=== PATIENT | female | born 1970 | race African-American/Black ===

== ENCOUNTER 2021-03-29 05:37 | Emergency (ER) | payer OTHER ==
[~2021-03-29] VITALS: Ht 149.9 cm; Wt 59.0 kg
[~2021-03-29 05:37] MED LIST: HYDROCHLOROTHIA25 M1 PO; MIRALAX255 GM PO; NOHOMEMEDICATIONS; PHENERGAN 25 MG25 M1 PO; ULTRAM 50MG TAB50 MG PO
[2021-03-29] MEDS ORDERED: HYDROCHLOROTHIA25 M1 PO (06:28)
[2021-03-29] MEDS ORDERED: NORVASC5 MG PO (06:28)
[2021-03-29] MEDS ORDERED: LOSARTAN POTASS50 MG PO (06:28)
[2021-03-29 07:01] LABS: ABSOLUTE NEUTROPHILS 3.4 thou/uL (1.4-8.2); BASOPHILS 0.6 % (0.0-2.0); EOSINOPHILS 0.8 % (0.0-3.0); HEMATOCRIT 42.8 % (37.0-47.0); HEMOGLOBIN 13.7 gm/dL (12.0-15.0); LYMPHOCYTES 32.2 % (24.0-44.0); MCH 25.6 pg (26.0-34.0); MCHC 31.9 g/dL (28.0-37.0); MONOCYTES 6.6 % (1.0-8.0); PLATELET COUNT 258 thou/uL (150-400); POLYS 59.8 % (36.0-66.0); RBC 5.35 mil/uL (4.20-5.00); RDW 14.1 % (10.5-14.5); WBC 5.7 thou/uL (4.0-11.0)
[2021-03-29 07:13] LABS: CALCIUM 9.2 mg/dL (8.5-10.1); CREATININE 0.9 mg/dL (0.6-1.0); MAGNESIUM 2.2 mg/dL (1.8-2.4)
--- NOTE | 2021-03-29 07:18 | EKG ---
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 : 1970 Requested By: Nona Horner Order Number: [id number] MD: Vikas Yancey Measurements Intervals [place] Rate: 77 P: 26 GA: 126 QRS: -43 QRSD: 95 T: 15 QT: 378 QTc: 428 Interpretive Statements Sinus rhythmjavascript:perform('study_confirm'); Left anterior fascicular block Left ventricular hypertrophy Compared to ECG 09/21/2011 19:55:24 Left anterior fascicular block now present Left-axis deviation no longer present Electronically Signed On 03-29-2021 7:18:29 [employer] by Vikas Yancey [email or web address] <ELECTRONICALLY SIGNED> By: Vikas Yancey MD, [facility] 03/29/21 0718 Vikas Yancey MD, [facility] /EPI
[2021-03-29 08:25] VITALS: BP 139/64
== END 2021-03-29 08:26 | disposition home or self-care (01) ==
LOC: ER 05:37
PROVIDERS: Emergency Medicine
DX: R07.89 Other chest pain (principal); I10 Essential (primary) hypertension; Z90.89 Acquired absence of other organs; Z98.51 Tubal ligation status; Z79.891 Long term (current) use of opiate analgesic; Z79.1 Long term (current) use of non-steroidal anti-inflammatories (NSAID); Z79.899 Other long term (current) drug therapy; Z88.6 Allergy status to analgesic agent